=== PATIENT | female | born 1985 | race Asian ===

== ENCOUNTER 2017-09-13 06:37 | Inpatient (IN) | payer SELFPAY ==
[~2017-09-13] VITALS: Ht 160 cm; Wt 58.1 kg
[2017-09-13] MEDS ORDERED: OXYTOCIN/0.9 % SODIUM CHLORIDE 1,000 ML IV SCH (07:34)
[2017-09-13] MEDS ORDERED: TERBUTALINE SULFATE 1 MG/ML VIAL SUBCUT ONE (07:45)
[2017-09-13 08:18] LABS: BASOPHILS % (AUTO) 0.3 % (0.0-2.0); EOSINOPHILS # (AUTO) 0.1 K/uL (0.0-0.4); EOSINOPHILS % (AUTO) 1.2 % (0.0-4.0); HEMATOCRIT 31.8 % (36-48); HEMOGLOBIN 10.4 g/dL (12.0-16.0); LYMPHOCYTES # (AUTO) 1.3 K/uL (1.0-5.5); LYMPHOCYTES % (AUTO) 18.7 % (20.5-51.5); MEAN CORPUSCULAR HEMOGLOBIN 26 pg (27-31); MEAN CORPUSCULAR HGB CONC 33 % (32-36); MEAN CORPUSCULAR VOLUME 79 fL (79.0-98.0); MONOCYTES # (AUTO) 0.5 K/uL (0.0-1.0); MONOCYTES % (AUTO) 7.5 % (1.7-9.3); NEUTROPHILS % (AUTO) 72.3 % (40.0-70.0); PLATELET COUNT (AUTO) 266 K/uL (130-430); RED BLOOD CELL COUNT(AUTO) 4.05 MIL/uL (4.2-6.2); RED CELL DISTRIBUTION WIDTH 13.8 % (9.0-15.0); WHITE BLOOD COUNT (AUTO) 6.9 K/uL (4.8-10.8)
[2017-09-13] MEDS: LR 1,000 ML IV SCH ×2 (08:38→13:13)
[2017-09-13] MEDS: NALBUPHINE HCL 10 MG/ML AMP IVP PRN ×2 (11:27→15:48)
[2017-09-13 11:38] VITALS: BP_SYST 112
[2017-09-13] MEDS ORDERED: fentaNYL CITRATE/PF 100 MCG/2 ML AMP ONE (13:23)
[2017-09-13] MEDS ORDERED: ROPIVACAINE 0.2% 0 ML ONE (13:23)
[2017-09-13] MEDS ORDERED: LR 500 ML IV ONE (13:46)
[2017-09-13] MEDS ORDERED: FENT2mCg/mL-ROPIVA0.2%/NS EPID 150 ML EP SCH (14:00)
[2017-09-13] MEDS ORDERED: OXYTOCIN/0.9 % SODIUM CHLORIDE 1,000 ML IV ONE (15:20)
[2017-09-13] MEDS ORDERED: MEASLES,MUMPS&RUBELLA VACC/PF 12500 UNIT/0.5 ML VIAL SUBQ PRN (15:30)
[2017-09-13] MEDS ORDERED: HYDROCORTISONE 0.5%, 28.35 GM TOPICAL CREAM TP PRN (15:30)
[2017-09-13] MEDS ORDERED: RHO(D) IMMUNE GLOBULIN/MALTOSE 1500 UNITS/1.3 ML (WINHRO) IM PRN (15:30)
[2017-09-13] MEDS ORDERED: WITCH HAZEL LEAF 1 MED.PAD MED.PAD TP PRN (15:30)
[2017-09-13] MEDS ORDERED: DERMOPLAST SPRAY TP PRN (15:30)
[2017-09-13] MEDS ORDERED: LANOLIN 7 GM OINT. TP PRN (15:30)
[2017-09-13] MEDS ORDERED: ACETAMINOPHEN 325 MG TABLET PO PRN (15:30)
[2017-09-13] MEDS ORDERED: METHYLERGONOVINE MALEATE 0.2 MG TABLET PO PRN (15:30)
[2017-09-13] MEDS ORDERED: ANUSOL 1 EA SUPP.RECT (PREPARATION H) RC PRN (15:30)
[2017-09-13] MEDS ORDERED: OXYCODONE/ACETAMINOPHEN 5-325 TABLET PO PRN (15:30)
[2017-09-13] MEDS ORDERED: SENNOSIDES/DOCUSATE SODIUM 1 TAB TABLET(SENOKOT-S) PO PRN (15:30)
[2017-09-13] MEDS: IBUPROFEN 600 MG TABLET PO SCH (18:08)
[2017-09-13] MEDS: DOCUSATE SODIUM 100 MG CAPSULE PO PRN (18:08)
[2017-09-14] MEDS: IBUPROFEN 600 MG TABLET PO SCH ×5 (00:05→23:44)
[2017-09-14] MEDS: OXYCODONE/ACETAMINOPHEN 5-325 TABLET PO PRN ×2 (01:35→09:06)
[2017-09-14 06:21] LABS: HEMATOCRIT 27.8 % (36-48); HEMOGLOBIN 9.2 g/dL (12.0-16.0)
[2017-09-14] MEDS ORDERED: BUPIVACAINE /PF 0.25% 30 ML VIAL INJ ONE (07:25)
[2017-09-15] MEDS: DOCUSATE SODIUM 100 MG CAPSULE PO PRN (00:40)
[2017-09-15] MEDS: IBUPROFEN 600 MG TABLET PO SCH (06:04)
== END 2017-09-15 11:20 | disposition home or self-care (01) | DRG 775 ==
LOC: EDBD → SPU 06:37
PROVIDERS: ADMIT Obstetrics & Gynecology; ATTEND Obstetrics & Gynecology
PROC: 10E0XZZ Delivery of Products of Conception, External Approach (ICD-10-PCS; principal; 2017-09-13)
PROC: 0HQ9XZZ Repair Perineum Skin, External Approach (ICD-10-PCS; 2017-09-13)
PROC: 3E0R3BZ Introduction of Anesthetic Agent into Spinal Canal, Percutaneous Approach (ICD-10-PCS; 2017-09-13)
PROC: 00HU33Z Insertion of Infusion Device into Spinal Canal, Percutaneous Approach (ICD-10-PCS; 2017-09-13)
DX: O70.9 Perineal laceration during delivery, unspecified (principal); O75.89 Other specified complications of labor and delivery; Z3A.39 39 weeks gestation of pregnancy; Z37.0 Single live birth; Q67.4 Other congenital deformities of skull, face and jaw
CPT/HCPCS: 36415; 81002-TC; 85018-TC; 85025; 86592; 86886; 86900; 86901; J2300; J2590; J2795; J3010; J3490